=== PATIENT | male | born 1955 | race Caucasian/White ===

== ENCOUNTER 2017-10-13 19:39 | Emergency (ER) | payer OTHER ==
[~2017-10-13] VITALS: Ht 167.6 cm; Wt 83.0 kg
[2017-10-13 19:53] VITALS: BP 157/97
[2017-10-13 22:23] VITALS: BP 147/89
== END 2017-10-13 22:24 | disposition home or self-care (01) ==
LOC: MED 19:39
DX: H15.003 Unspecified scleritis, bilateral (principal); H10.13 Acute atopic conjunctivitis, bilateral
CPT/HCPCS: 99283